=== PATIENT | female | born 1980 | race Caucasian/White ===

== ENCOUNTER 2018-05-18 21:12 | Emergency (ER) | payer SELFPAY ==
[2018-05-18] MEDS ORDERED: PENICILLIN V POTASSIUM 500 MG TABLET PO ONE (22:31)
[2018-05-18] MEDS ORDERED: HYDROCODONE/ACETAMINOPHEN 5-325 MG TABLET PO ONE (22:31)
[2018-05-18] MEDS ORDERED: HYDROCODONE/ACETAMINOPHEN 5-325 MG (6 TAB/ER DISP) PO PRN (22:33)
--- NOTE | 2018-05-18 22:37 | ER Document Report ---
ED Oral Problem - General Chief Complaint: Toothache Stated Complaint: TOOTH PAIN Time Seen by Provider: 05/18/18 22:25 Mode of Arrival: Ambulatory Information source: Patient, [facility] Records Notes: This 37-year-old female patient complaining of pain to her left upper posterior teeth for a few days. There is no fever. There is no facial swelling. TRAVEL OUTSIDE OF THE [place] IN LAST 30 DAYS: No - Related Data Allergies/Adverse Reactions: No Known Allergies Allergy (Verified 02/16/16 23:20) Past Medical History - Social History Smoking Status: Current Every Day Smoker Cigarette use (# per day): Yes - 1/2 PPD Family History: Reviewed & Not Pertinent Patient has suicidal ideation: No Patient has homicidal ideation: No Pulmonary Medical History: Reports: Hx Asthma Renal/ Medical History: Denies: Hx Peritoneal Dialysis Past Surgical History: Reports: Hx Gynecologic Surgery - LEEP, Hx Tubal Ligation - Immunizations Hx Diphtheria, Pertussis, Tetanus Vaccination: Yes - 04/29/2011 Physical Exam - Vital signs Vitals: Pulse Resp BP Pulse Ox 80 16 177/83 H 98 05/18/18 21:27 05/18/18 21:27 05/18/18 21:27 05/18/18 21:27 Course - Vital Signs Vital signs: Temp Pulse Resp BP Pulse Ox 80 16 177/83 H 98 05/18/18 21:27 05/18/18 21:27 05/18/18 21:27 05/18/18 21:27 Discharge - Discharge Clinical Impression: Dental decay, Toothache High blood pressure Qualifiers: Hypertension type: unspecified Qualified Code(s): I10 - Essential (primary) hypertension Condition: Stable Disposition: HOME, SELF-CARE Additional Instructions: Toothache Your pain is due to dental decay. The tooth must be repaired in order for you to feel better. You will, therefore, be referred to a dentist. Severe swelling or drainage around a tooth usually means a deep dental abscess. This also requires evaluation and treatment by the dentist, but antibiotics may be prescribed while awaiting dental treatment. You should be rechecked immediately if you develop major swelling of the face, increasing pain, a lump in the jaw or gums, headache, or fever. 177/83High Blood Pressure When your blood pressure was taken today it was elevated. Today's reading was . Pre-hypertension/Hypertension: The patient has been informed that they may have pre-hypertension or Hypertension based on a blood pressure reading in the emergency department. I recommend that the patient call the primary care provider listed on their discharge instructions or a physician of their choice this wee to arrange follow up for further evaluation of possible pre- hypertension or Hypertension. Sometimes, stress or illness causes a temporary elevation of your blood pressure. We suggest that you get your blood pressure measured three more times during the next few days to see if this is more than a temporary abnormality. If your blood pressure is greater than 150/90 on each occasion, you must have treatment. Some simple things you can do to help are: If you have blood pressure medicine but aren't using it regularly, start taking it again. Get some aerobic exercise for at least 20 minutes on a daily basis. (See your doctor before beginning a new exercise program.) Eat a low-fat diet. Lose excess weight. Avoid salty foods and avoid adding salt to any of the foods you eat. Avoid diet pills, decongestants, "energizing" herbs, and other medicines that elevate blood pressure. If left untreated, hypertension greatly enhances your risk for developing heart disease and strokes. Please don't ignore this problem. Take the pain medication as dispensed tonight if needed. Take the penicillin as prescribed starting tomorrow. Take ibuprofen or Aleve for pain. Check your blood pressure a few times a day over the next several days and keep a record. Follow-up with a local dentist to take care of your decayed teeth. Prescriptions: Penicillin V Potassium [Penicillin Vk 500 mg Tablet] 500 mg PO QID #28 tablet
[2018-05-18 23:02] VITALS: BP 146/83
== END 2018-05-18 22:42 | disposition home or self-care (01) ==
LOC: ER 21:12
DX: K08.9 Disorder of teeth and supporting structures, unspecified (principal); F17.210 Nicotine dependence, cigarettes, uncomplicated; I10 Essential (primary) hypertension; Z98.51 Tubal ligation status
CPT/HCPCS: 99282

== ENCOUNTER 2019-03-24 20:22 | Emergency (ER) | payer SELFPAY ==
--- NOTE | 2019-03-24 21:46 | RADIOLOGY REPORT (SQ) ---
EXAM DESCRIPTION: XR HAND 3 OR MORE VIEWS COMPLETED DATE/TME: 03/24/2019 00:00 CLINICAL HISTORY: injury COMPARISON: None FINDINGS: Three x-ray views of the right hand were submitted. There is an oblique/spiral-like nondisplaced fracture of the proximal fifth metacarpal bone. Bone mineralization is within normal limits. There is no radiopaque foreign body material. IMPRESSION: Acute nondisplaced fracture of the proximal fifth metacarpal bone.
[2019-03-24] MEDS ORDERED: HYDROCODONE/ACETAMINOPHEN 5-325 MG TABLET PO ONE (22:39)
--- NOTE | 2019-03-24 22:56 | ER Document Report ---
Addendum entered and electronically signed by MARITZA DE SOUZA PA-C 04/19/19 19:34: Course - Re-evaluation Re-evalutation: 04/19/19 19:33 Addendum: Patient was placed in a orthoglass Ulnar/gutter hand/wrist splint with a sling - Vital Signs Vital signs: Temp Pulse Resp BP Pulse Ox 98.3 F 79 16 134/66 H 100 03/24/19 20:42 03/24/19 23:14 03/24/19 23:14 03/24/19 23:14 03/24/19 23:14 Addendum entered and electronically signed by MARITZA DE SOUZA PA-C 04/11/19 20:38: Course - Re-evaluation Re-evalutation: 04/11/19 20:36 Addendum: There was a short arm/hand splint applied to the right hand. Error was in original order as a short leg posterior splint It is in fact a hand splint - Vital Signs Vital signs: Temp Pulse Resp BP Pulse Ox 98.3 F 79 16 134/66 H 100 03/24/19 20:42 03/24/19 23:14 03/24/19 23:14 03/24/19 23:14 03/24/19 23:14 Original Note: ED Hand/Wrist Injury - General Chief Complaint: injury Rt hand Stated Complaint: HAND INJURY Time Seen by Provider: 03/24/19 21:40 Information source: Patient, Relative Notes: Patient is a 38-year-old female comes emergency room complaint of right hand pain. Patient states she thinks she broke her hand. Patient patient walked from her bathroom to her living room and she is feeling in her arms and her right hand dorsal aspect hit a table on the way into the living room. Patient state was instant pain and swelling. She denies any other injuries. Patient denies any other medical problems. Patient smokes a pack service today. Patient does not work currently. TRAVEL OUTSIDE OF THE [place] IN LAST 30 DAYS: No - HPI Injury to: Hand Onset: Just prior to arrival Where: Home Timing: Constant Quality of pain: Sharp, Stabbing, Throbbing Severity: Moderate Pain Level: 3 Context: Blow - Related Data Allergies/Adverse Reactions: No Known Allergies Allergy (Verified 02/16/16 23:20) Past Medical History - General Information source: Patient - Social History Smoking Status: Current Every Day Smoker Cigarette use (# per day): Yes - 1 pack a day Chew tobacco use (# tins/day): No Smoking Education Provided: No Frequency of alcohol use: None Drug Abuse: None Family History: Reviewed & Not Pertinent Patient has suicidal ideation: No Patient has homicidal ideation: No Pulmonary Medical History: Reports: Hx Asthma Renal/ Medical History: Denies: Hx Peritoneal Dialysis Past Surgical History: Reports: Hx Gynecologic Surgery - LEEP, Hx Tubal Ligation - Immunizations Hx Diphtheria, Pertussis, Tetanus Vaccination: Yes - 04/29/2011 Review of Systems - Review of Systems Constitutional: No symptoms reported EENT: No symptoms reported Cardiovascular: No symptoms reported Respiratory: No symptoms reported Gastrointestinal: No symptoms reported Genitourinary: No symptoms reported Female Genitourinary: No symptoms reported Musculoskeletal: See HPI, Joint pain Skin: No symptoms reported Hematologic/Lymphatic: No symptoms reported Neurological/Psychological: No symptoms reported -: Yes All other systems reviewed and negative Physical Exam - Vital signs Vitals: Temp Pulse Resp BP Pulse Ox 98.3 F 82 20 146/63 H 98 03/24/19 20:42 03/24/19 20:42 03/24/19 20:42 03/24/19 20:42 03/24/19 20:42 Interpretation: Hypertensive - Notes Notes: PHYSICAL EXAMINATION: GENERAL: well-nourished well-developed 38-year-old female who is in no apparent distress on physical examination however she does appear somewhat uncomfortable and a mild/moderate pain. HEAD: Atraumatic, normocephalic. LUNGS: Breath sounds clear to auscultation bilaterally and equal. No wheezes rales or rhonchi. HEART: Regular rate and rhythm without murmurs Musculoskeletal: Examination patient's area of concern is her right dorsum of her hand. Physical examination so patient has full flexion of the fingers as well as full extension of the fingers. And this is both on the right hand and left hand. Patient has good cap refill in the nailbeds of the right hand. She also has good ulnar and radial pulses. Patient has decreased dog show judge strength with the right hand as compared to the left. She has swelling and ecchymosis on the top of the dorsum of the right hand with moderate amount of swelling and mild edema. Small hematoma is also noted. Ecchymosis is prominent on near the PIP of the right little finger. Patient is also tender over the distal end of the fifth metacarpal area. NEUROLOGICAL: Normal speech, normal gait. Normal sensory, motor exams PSYCH: Normal mood, normal affect. SKIN: See musculoskeletal above Course - Vital Signs Vital signs: Temp Pulse Resp BP Pulse Ox 98.3 F 82 20 146/63 H 98 03/24/19 20:42 03/24/19 20:42 03/24/19 20:42 03/24/19 20:42 03/24/19 20:42 Procedures - Immobilization Right Dorsal Hand Time completed: 23:08 Pre-Proc Neuro Vasc Exam: Normal Immobilizer type: Sling, Short Leg Posterior Performed by: PCT - No Post-Proc Neuro Vasc Exam: Normal Alignment checked and good: Yes Discharge - Discharge Clinical Impression: Metacarpal bone fracture Qualifiers: Encounter type: initial encounter Metacarpal bone: fifth Fracture type: closed Metacarpal location: base Fracture alignment: nondisplaced Laterality: right Qualified Code(s): S62.346A - Nondisplaced fracture of base of fifth metacarpal bone, right hand, initial encounter for closed fracture Condition: Stable Disposition: HOME, SELF-CARE Instructions: Fractured Fifth Metacarpal ([facility]) Additional Instructions: Use the splint for the minimal 5 to 6 days. Sling for comfort as well. Ice hoa n through the splint 3 times a day for 30 to 40 minutes. I am given you the name of the orthopedist whom you can contact to see if they can accommodate you. This is a type of fracture that will probably either need to be splinted for an extended period of time or may need surgery. So it is highly suggest that you follow-up with any orthopedic you may desire. We also return to ER if you have any concerns or problems. Ibuprofen and Tylenol for pain and discomfort. Prescriptions: Hydrocodone/Acetaminophen [[place] 5-325 mg Tablet] 1 tab PO Q6 PRN #10 tablet PRN Reason: Referrals: PUMA ANTONIO MD [ACTIVE STAFF] - Follow up as needed
[2019-03-24 23:15] VITALS: BP 134/66
== END 2019-03-24 23:15 | disposition home or self-care (01) ==
LOC: ER 20:22
DX: S62.346A Nondisplaced fracture of base of fifth metacarpal bone, right hand, initial encounter for closed fracture (principal); W22.03XA Walked into furniture, initial encounter; Y92.009 Unspecified place in unspecified non-institutional (private) residence as the place of occurrence of the external cause; F17.210 Nicotine dependence, cigarettes, uncomplicated; J45.909 Unspecified asthma, uncomplicated
CPT/HCPCS: 99283

== ENCOUNTER 2020-08-03 21:45 | Emergency (ER) | payer SELFPAY ==
[2020-08-03] MEDS ORDERED: ACETAMINOPHEN 325 MG TABLET PO ONE (22:52)
[2020-08-03] MEDS ORDERED: LIDOCAINE 1%/EPINEPHRINE INJ 20 ML VIAL INJ ONE (22:53)
--- NOTE | 2020-08-03 22:57 | ER Document Report ---
ED Skin Rash/Insect Bite/Abscs - General Chief Complaint: Insect Bite Stated Complaint: POSSIBLE INSECT BITE ON LEFT ARM Time Seen by Provider: 08/03/20 22:47 Primary Care Provider: [facility] [Provider Group[facility] - Follow [facility] as needed [facility] - Follow up as needed Notes: Patient is a 39-year-old female who presents the emergency department with a chief complaint of a "bug bite" to her left forearm. Patient states that she saw a bug on her left forearm last night and "slapped it." Patient denies any fevers, body aches, or chills. Patient does not take any medications. Patient denies any drug use. TRAVEL OUTSIDE OF THE [place] IN LAST 30 DAYS: No - Related Data Allergies/Adverse Reactions: No Known Allergies Allergy (Verified 02/16/16 23:20) Past Medical History - Social History Smoking Status: Current Every Day Smoker Chew tobacco use (# tins/day): No Frequency of alcohol use: None Drug Abuse: Marijuana Family History: Reviewed & Not Pertinent Patient has homicidal ideation: No Pulmonary Medical History: Reports: Hx Asthma Renal/ Medical History: Denies: Hx Peritoneal Dialysis Past Surgical History: Reports: Hx Gynecologic Surgery - LEEP, Hx Tubal Ligation - Immunizations Hx Diphtheria, Pertussis, Tetanus Vaccination: Yes - 04/29/2011 Review of Systems - Review of Systems Notes: REVIEW OF SYSTEMS: CONSTITUTIONAL : Denies recent illness. Denies recent unintentional weight loss. Denies fever, chills, or sweats. EENT: Denies eye, ear, throat, or mouth pain, discharge, or symptoms. Denies nasal or sinus congestion. CARDIOVASCULAR: Denies chest pain. RESPIRATORY: Denies shortness of breath, cough, congestion, difficulty breathing, or wheezing. GASTROINTESTINAL: Denies nausea, vomiting, and diarrhea. Denies abdominal pain. Denies constipation. GENITOURINARY: Denies difficulty urinating, burning, blood in urine, urgency or frequency. MUSCULOSKELETAL: Denies neck and back pain. Denies joint pain or swelling. SKIN: See HPI. HEMATOLOGIC : Denies easy bruising or bleeding. LYMPHATIC: Denies swollen, painful, enlarged glands. NEUROLOGICAL: Denies no numbness or tingling denies weakness. Denies headache. Denies altered mental status. Denies alteration in speech. PSYCHIATRIC: Denies stress, anxiety, alteration in sleep patterns, or depression. All other systems reviewed and negative. Physical Exam - Vital signs Vitals: Temp Pulse Resp BP Pulse Ox 98.3 F 90 24 H 140/76 H 99 08/03/20 21:59 08/03/20 21:59 08/03/20 21:59 08/03/20 21:59 08/03/20 21:59 - Notes Notes: PHYSICAL EXAMINATION: GENERAL: Appears well, healthy, well-nourished, no acute distress. HEAD: Normocephalic, atraumatic. EYES: PERRL, conjunctiva normal, all extraocular movements intact, sclera nonicteric ENT: Moist mucous membranes. EXTREMITIES: Normal strength and range of motion, no pitting or edema. Small amount of edema noted around abscess to left upper forearm. NEUROLOGICAL: Moves all extremities upon command. Strength 5/5 in all extremities. PSYCH: Normal mood, normal affect. SKIN: Warm, dry. Abscess noted to the left upper forearm. Track martinez noted to right forearm. Course - Re-evaluation Re-evalutation: 08/04/20 Differential diagnosis includes but normal limited to: abscess, dermoid cyst, sebaceous cyst, furnucle, or others. Based on patient's physical exam and history, this is an abscess. It was drained in the ER. There is some surrounding cellulitis. I do not believe the patient has underlying necrotizing fasciitis. Based on patient's physical exam and these factors, they will be treated with antibiotics. Although the patient denies any history of IV drug use, the patient does have track martinez noted to her right arm. Addressed this with the patient. She still adamantly denies drug use. - Vital Signs Vital signs: Temp Pulse Resp BP Pulse Ox 98.3 F 87 24 H 150/86 H 99 08/03/20 22:44 08/04/20 00:25 08/03/20 21:59 08/04/20 00:25 08/03/20 21:59 - Laboratory Result Diagrams: 08/03/20 23:00 08/03/20 23:00 Laboratory results interpreted by me: 08/03/20 08/03/20 23:00 23:00 WBC 12.9 H RDW 14.4 H Absolute Neuts (auto) 9.3 H Sodium 136.4 L Est GFR (MDRD) Non-Af 56 L Glucose 116 H AST 45 H Discharge - Discharge Clinical Impression: Abscess Cellulitis Qualifiers: Site of cellulitis: extremity Condition: Stable Disposition: HOME, SELF-CARE Instructions: Abscess ([facility]), Cephalexin ([facility]), Post Incision and Drainage, Trimethoprim-Sulfa ([facility]) Additional Instructions: You were seen today in the emergency department for an abscess to your left arm. The abscess was drained here in the emergency department. Packing was placed to the area. You can change the dressing, but do not pull out the packing. Please take your antibiotics as prescribed. Return in 2 days to have your wound rechecked. If the redness spreads, return to the emergency department immediately. Prescriptions: Sulfamethoxazole/Trimethoprim [Bactrim Ds Tablet] 1 each PO BID 7 Days #14 tablet Cephalexin Monohydrate [Keflex 500 mg Capsule] 500 mg PO Q6H 7 Days #28 capsule Referrals: [facility] [Provider Group] - Follow up as needed [facility] - Follow up as needed
[2020-08-03] MEDS ORDERED: CLINDAMYCIN 300 MG/D5W RTU 300 MG/50 ML RTUPB IV ONE (23:12)
[2020-08-03 23:20] LABS: ABSOLUTE EOSINOPHILS # (AUTO) 0.1 10^3/uL (0.0-0.6); ABSOLUTE LYMPHOCYTES (AUTO) 2.6 10^3/uL (0.5-4.7); ABSOLUTE MONOCYTES (AUTO) 0.9 10^3/uL (0.1-1.4); ABSOLUTE NEUT (AUTO) 9.3 10^3/uL (1.7-8.2); BASOPHILS % (AUTO) 0.3 % (0-2); EOSINOPHILS % (AUTO) 0.8 % (0-6); HEMATOCRIT 40.2 % (36.0-47.0); HEMOGLOBIN 13.5 g/dL (12.0-15.5); LYMPHOCYTES % (AUTO) 19.9 % (13-45); MEAN CORPUSCULAR HEMOGLOBIN 29.7 pg (27.0-33.4); MEAN CORPUSCULAR HGB CONC 33.5 g/dL (32.0-36.0); MEAN CORPUSCULAR VOLUME 89 fl (80-97); MONOCYTES % (AUTO) 7.2 % (3-13); PLATELET COUNT 374 10^3/uL (150-450); RED BLOOD COUNT 4.55 10^6/uL (3.72-5.28); RED CELL DISTRIBUTION WIDTH 14.4 % (11.5-14.0); SEGMENTED NEUTROPHILS % (AUTO) 71.8 % (42-78); TOTAL CELLS COUNTED % (AUTO) 100 %; WHITE BLOOD COUNT 12.9 10^3/uL (4.0-10.5)
[2020-08-03 23:28] LABS: ALBUMIN 4.2 g/dL (3.5-5.0); ALKALINE PHOSPHATASE 79 U/L (38-126); ANION GAP 5 (5-19); ASPARTATE AMINO TRANSFERASE 45 U/L (14-36); BILIRUBIN,DIRECT 0.3 mg/dL (0.0-0.4); BILIRUBIN,TOTAL 0.8 mg/dL (0.2-1.3); BLOOD UREA NITROGEN 19 mg/dL (7-20); CALCIUM 9.2 mg/dL (8.4-10.2); CARBON DIOXIDE 30 mmol/L (22-30); CHLORIDE 101 mmol/L (98-107); GLUCOSE 116 mg/dL (75-110); POTASSIUM 4.3 mmol/L (3.6-5.0); TOTAL PROTEIN 7.5 g/dL (6.3-8.2)
[2020-08-04 00:32] VITALS: BP 150/86
== END 2020-08-04 00:32 | disposition home or self-care (01) ==
LOC: ER 21:45
DX: L02.414 Cutaneous abscess of left upper limb (principal); L03.114 Cellulitis of left upper limb; F17.200 Nicotine dependence, unspecified, uncomplicated; F12.10 Cannabis abuse, uncomplicated; J45.909 Unspecified asthma, uncomplicated
CPT/HCPCS: 10060; 99284; 96365; 36415; 87040; 87070; 87205; 85025; 87075; 87077; 80053; 87186; J3490 ×2